=== PATIENT | female | born 1950 | race Caucasian/White ===

== ENCOUNTER 2017-04-04 14:41 | Inpatient (IN) | payer MEDICAID ==
--- NOTE | ~2017-04-04 | PR ---
[place], [place] PROGRESS NOTE NAME: [id number] UNIT #: [id number] ROOM: 317 DOCTOR: ANJELICA GALEANO BIRTHDATE: [birth year] DOS: 04/06/2017 CHIEF COMPLAINT: "This is ridiculous that I'm here." SUMMARY OF VISIT: The patient was assessed in the dining room where she engaged in conversation. She is still quite irritable. When I reminded her that we sent her here because that she had increased depression, suicidal thoughts and statements, she looked at me and said "you don't know that, you don't know me." When I reminded her that I see her every week at her nursing facility, she got really quiet. I asked her about her nephews overdose and if that affected her, she became very quiet and she said yeah actually it did. So, I think this is some of the contributing factor. She still thinks it is stupid that she is here and that we are stupid for having her here. MENTAL STATUS: She is alert and oriented to person, place, I do not think time. Mood, still depressed with anxious overtones, very irritable, sometimes difficult to redirect. She does jump from topic to topic. No overt signs of auditory or visual hallucinations. PLAN: Dr. Rosenberg did increase her Remeron to 22.5 mg at bedtime. He augmented it with Vraylar. I think I am starting to see some improvement. He also added Exelon, so I am not going to change any psych meds at this point in time. I do see that in his note, her TSH was up and that he ordered a T4 and T3 to be checked with the hospitalist to followup for management. We are still trying to decide if the patient had any type of thyroidectomy, I believe her daughter said that, but we are still trying to clarify this. So, I will follow up with and defer to the hospitalist as far as managing this elevated TSH. It does look like the T3 and T4 are in the normal range and see if they want to treat this or just monitor. We will continue to engage in individual and pena milieu therapy with a plan to discharge when stable. DANA GALEANO CNP CM:PNTRANS [id number] ANJELICA GALEANO 04/07/17 0013 interface
--- NOTE | ~2017-04-04 | PR ---
[place], [place] PROGRESS NOTE NAME: ALONZO HERRERA UNIT #: [id number] ROOM: 317 DOCTOR: JUAQUIN ALMODOVAR MD BIRTHDATE: [birth year] DOS: 04/08/2017 INTERVAL NOTE CHIEF COMPLAINT: "How am I supposed to cut my pancakes with the plastic knife." SUMMARY OF THE VISIT: The patient was interviewed as she sat eating breakfast. She complained to me that she was not able to cut her pancakes, I did offer her some assistance and she smiled readily. She then later reported to me she is very anxious to return back to [facility] and wants to leave the hospital as soon as she can. Mood does seem to be somewhat trending towards euthymia. She reports tolerating the medications well and denies any side effects. MENTAL STATUS: She is alert and oriented to person, place and very approximate to time. Mood does seem to be trending towards euthymia as mentioned earlier. There does not seem to be the presence of psychosis or juan. Short term memory has gaps. PLAN: I will increase her Vraylar from 1.5 mg to 3 mg a day to further stabilize her mood. I will also maximize out the dose of the Exelon patch from 9.5 to 13.3 mg daily in order to improve or maintain ADLs, behavior and cognition. Continue to engage in individual and pena milieu activity with the ultimate plan to return back to [facility] when stable. JUAQUIN ALMODOVAR MD CM:PNTRANS [id number] JUAQUIN ALMODOVAR MD 04/08/17 1203 interface
--- NOTE | ~2017-04-04 | DS ---
[place], [place] DISCHARGE SUMMARY NAME: ALONZO HERRERA [facility] #: [id number] UNIT #: [id number] ROOM: 317 DOCTOR: JUAQUIN ALMODOVAR MD BIRTHDATE: [birth year] DOS: 04/12/2017 DATE OF ADMISSION: 04/04/2017. DATE OF DISCHARGE: 04/12/2017. CHIEF COMPLAINT: "I have been so depressed; I can't stand it any longer." HISTORY OF PRESENT ILLNESS: This is a 66-year-old white female who is a resident of [facility] in [place], [place]. The patient apparently had been voicing increased depression and anxiety with suicidal thoughts and a plan. Per her report, she took an overdose of medication. She has been acting very bizarrely and felt like she needed to get out of the skilled nursing because there was a war going on and she was going to get sucked into war. This behavior is new onset and has occurred for the last several weeks prior to this admission. Prior to that time, she was very jovial and pleasant and had been residing at the skilled nursing for sometime never exhibiting any of these psychiatric manifestations. She is admitted now to the [facility] to rule out any organic factors to attempt to stabilize on medication with the ultimate plan to return back to [facility] when psychiatrically stable. PAST MEDICAL HISTORY: Remarkable for atrial fibrillation, dementia, depression, hyperlipidemia, hypertension, and vitamin D deficiency. SUMMARY OF HOSPITAL COURSE: The patient was admitted to the unit, where she was started on Remeron 15 mg at bedtime. Additionally, Vraylar 1.5 mg at bedtime was started to augment the effectiveness of the Remeron and also stopped some of the psychotic symptoms. She had already been on Namenda 10 mg twice daily while at the skilled nursing. This was augmented with Exelon patch 4.6 mg a day. The dose of Exelon was rapidly titrated upward to its maximum dose of 13.3 mg a day without any side effects noted. Ultimately, the Remeron dose was increased from the 15 mg dose to 22.5 to further improve her overall mood. With the combination of the Remeron and the Vraylar which was ultimately maxed out at its highest dose of 6 mg a day, the patient improved dramatically. She voiced improved sleep and appetite improved energy level. There was no longer talk with wars occurring at the facility and she voiced a willingness and a readiness to return back to [facility] as soon as possible. She convincingly denied medication side effects and reported overall feeling well. She was discharged then back to [facility] on April 12 and will have followup by myself. MENTAL STATUS AT DISCHARGE: The patient is alert and oriented to person, place, but not necessarily time. Mood does seem to be strongly trending towards euthymia. Affect is much more appropriate. There is no symptom suggestive of juan or hypomania. There are no overt auditory or visual hallucinations noted. Short-term memory has mild gaps and she does at times process slowly and perseverates. Intermediate memory and long-term are fully intact. FINAL DIAGNOSES: Major depression, recurrent with psychotic features. PLAN: All of her prescriptions have been printed and will be sent with her. [place], [place] DISCHARGE SUMMARY [id number] UN[facility] #: [id number] ROOM: 317 DOCTOR: JUAQUIN ALMODOVAR MD BIRTHDATE: [birth year] will follow her upon her readmission back to [facility]. JUAQUIN ALMODOVAR MD CM:DISCHARG 1 [id number] JUAQUIN ALMODOVAR MD 04/12/17 1044 interface
--- NOTE | ~2017-04-04 | PR ---
[place], [place] PROGRESS NOTE [id number] #: [id number] ROOM: 317 DOCTOR: ANJELICA GALEANO BIRTHDATE: [birth year] DOS: 04/07/2017 CHIEF COMPLAINT: "I don't want to be here." SUMMARY OF VISIT: The patient was assessed in her room. She engaged in minimal conversation, but is still quite irritable. Nursing notes that she is paranoid about everything. This patient is just not herself. When she was at the jail prior to the of her nephew from an overdose, she was pleasant, engaging, sweet. Since returning from the actual she has not been herself. I had questioned staff as it was possible someone gave her something to calm her down, but they said that they ran tests on her and nothing seemed out of the ordinary other than the fact that she is quite paranoid, delusional, suicidal, severely depressed, wanting to . MENTAL STATUS: She is alert and oriented to person and place. She knows that she is not at her normal location, not time. Mood is quite labile, irritable, very difficult to redirect when she gets fixated. She still continues to jump from topic to topic and does not make sense at times. There are no signs of auditory or visual hallucinations, but she can be quite delusional and paranoid. PLAN: I am going to increase her Exelon patch to 9.5 mg every day. Her Remeron to 22.5. I am going to get a complete metabolic panel on her and see if there is something else going on. Her TSH was a little bit elevated, but her T3 and T4 were fine. We have a current CBC on her, no bump in the white blood cells anywhere. Her urine screen negative. Her dig level is fine. We will continue to try to gain a little bit more information on her. If she is not better by tomorrow I am going to have to bump up the Vraylar. We will plan discharging when stable. DANA GALEANO CNP CM:PNTRANS [id number] ANJELICA GALEANO 04/08/17 0748 interface
--- NOTE | ~2017-04-04 | PR ---
[place], [place] PROGRESS NOTE [id number] UN[facility] #: [id number] ROOM: 317 DOCTOR: ANJELICA GALEANO BIRTHDATE: [birth year] DOS: 04/11/2017 CHIEF COMPLAINT: "Good morning." SUMMARY OF VISIT: The patient was assessed in her room where she was still lying in bed before breakfast. She engaged readily in conversation. I inadvertently called her "Mrs. Herrera" again and she said "that's my mother" and I am like "I am sorry Alonzo, I know you prefer Alonzo, I was just trying to be crazy" and this is the first time she smiled and she said "that's okay." I told her that her hair look better today than it did yesterday and she agreed and smiled. So, I think we are making headway. She was saying that she was miserable and I asked her why and she is like "I just don't want to be here, I feel like I am in a horrible dream." I am like "would you like to eventually get back to [facility]" and she said "yes," and I am like "well, let me see if I can make that happen in the next couple of days" and she smiled. MENTAL STATUS: Alert and oriented to person, place, approximate time. Mood, she still having some lability, but it is trending towards euthymic. Affect is much more appropriate. There are no overt signs of auditory or visual hallucinations, delusions or paranoia. PLAN: I increased her Vraylar yesterday, I am going to keep it where it is today. We will continue to engage in individual and pena milieu therapy. We will continue to plan on discharging her as soon as she is psychologically stable. DANA GALEANO CNP CM:PNTRANS 0815 [id number] ANJELICA GALEANO 04/11/17 1250 interface
--- NOTE | ~2017-04-04 | PR ---
[place], [place] PROGRESS NOTE NAME: ALONZO HERRREA UNIT #: [id number] ROOM: 317 DOCTOR: JUAQUIN ALMODOVAR MD BIRTHDATE: [birth year] DOS: 04/09/2017 CHIEF COMPLAINT: "I want to leave here. I want to go home. I do not belong here." SUMMARY OF THE VISIT: The patient was interviewed in the dining area. She was sitting in a wheelchair, watching television. As I approached, she crossed her arms across her chest and very angrily told me that she wanted to leave here. She engaged briefly in conversation with me, lifting reasons why she wanted to leave and when I told her that this would not happen, she very angrily looked away and would no longer respond to me. MENTAL STATUS: The patient is alert and oriented to person, place, uncertain about time. The patient remains very volatile and labile. Of note, the patient did grab the phone and dialed 911 to summon the police here. She remains impulsive and very hard to redirect. Due to her lack of cooperation, I am not certain if we are dealing with some paranoia and delusions. Memory seems fairly intact. PLAN: I will continue to push the Vraylar to its maximum dose bring it from 3 mg at bedtime to 4.5. I am ultimately targeting 6 mg a day to achieve maximum benefit. We will continue to attempt to engage her in individual and pena milieu activity. The ultimate plan is to return her to [facility] when psychiatrically stable. JUAQUIN ALMODOVAR MD CM:PNTRANS 0840 0103 JUAQUIN ALMODOVAR MD 04/10/17 0104 interface
--- NOTE | ~2017-04-04 | WRIGHTHP ---
[place], [place] PATIENT HISTORY AND PHYSICAL EXAM NAME[id number] UNIT #: [id number] ROOM: 317 DOCTOR: JUAQUIN ALMODOVAR MD BIRTHDATE: [birth year] DOS: 04/05/2017 CHIEF COMPLAINT: "I have been depressed. I can't stand it anymore." HISTORY OF PRESENT ILLNESS: This is a 66-year-old white female who is a resident of [facility]. The patient apparently has been voicing increased depression and anxiety with suicidal thoughts and a plan. Per her report, she took an overdose of medication. She has been acting very bizarre, however, has reported that she needs to get out of the intermediate because there was a war going on. This behavior is new onset within the last several weeks prior to this admission. Prior to that, she had been very jovial and pleasant and had been residing at the intermediate for sometime and was not exhibiting any of these psychiatric manifestations. She is admitted now to rule out organic factors to attempt to stabilize on medication, returning back to [facility] when psychiatrically stable. PAST MEDICAL HISTORY: Remarkable for AFib, dementia, depression, hyperlipidemia, hypertension, vitamin D deficiency. MENTAL STATUS: She is alert and oriented to person, place, but not necessarily time. Mood does seem to be depressed with anxious overtones. She does tend to jump from topic to topic and it is very hard for her to answer questions. Totally, she lacks spontaneity. There is no hypomania or juan. There does seem to be some delusions present. Short term memory is exceedingly poor. DIAGNOSIS: Major depression, recurrent with psychotic features. PLAN: I have already adjusted her Remeron dose from 15 mg at bedtime to 22.5 mg at bedtime. I will augment this now with Vraylar 1.5 mg at bedtime, hoping that this will increase the effectiveness of the antidepressant, will also decreasing some of the psychotic symptomatology. For the dementia, she is on Namenda 10 mg twice daily. I will add Exelon patch 4.6 mg a day. Of note, the patient's TSH upon admission and routine screening examinations was mildly elevated at 6.040. I will check a free T4 and T3U. Defer to the hospitalist for management. We will engage her in individual and pena milieu activity with the ultimate plan to return back to [facility] once psychiatrically stable. [place], [place] PATIENT HISTORY AND PHYSICAL EXAM NAME: ALONZO HERRERA UNIT #: [id number] ROOM: [facility] DOCTOR: JUAQUIN ALMODOVAR MD BIRTHDATE: [birth year] JUAQUIN ALMODOVAR MD CM:HISPHYS:PATIENT HISTORY AND PHYSICAL EXAMINATION [id number] JUAQUIN ALMODOVAR MD 04/05/17 0810 interface
--- NOTE | ~2017-04-04 | PR ---
[place], [place] PROGRESS NOTE [id number] UNIT #: [id number] ROOM: 317 DOCTOR: ANJELICA GALEANO BIRTHDATE: [birth year] DOS: 04/10/2017 CHIEF COMPLAINT: "Look at my hair, I look like a pinhead." SUMMARY OF VISIT: The patient was assessed in the dining room where she was eating breakfast. I asked how she was. She was quite irritable. I asked her what was wrong. She is look at my hair, they washed it. It is all flat now, I look like a pinhead. I told her I kind of agree and asked her if she used jell or mousse in her hair and she says "I don't know" and I said I will have someone fluff up your hair after you are done with breakfast, if that will make you feel better and she stated that it would and then she was agreeable to answering my questions. She states that she is sleeping fine. She has a decent appetite. MENTAL STATUS: She is alert and oriented to person, place, I do not know about time. Her mood is still quite labile, right now she is upset about her hair. Apparently, she told the nurse, she looked like a skank. I do not know if she has got paranoia or delusions going on. Overall, her memory seems intact. At first you think she is having delusions or she is not quite there but then she will come back at you and what she is saying is making sense. PLAN: I am going to increase her Vraylar for now and just see if this helps at all. Again, from everything I obtained from the nursing facility, she has had an acute change since her nephew's . Plan again, I increased her Vraylar to [address] Rosenberg's note from yesterday, his ultimate targeting dose was 6 mg a day to achieve maximum benefit. We will continue to try to engage in individual and pena milieu therapy. Plan is to get her [facility] to [facility] as soon as she is psychologically stable. This is just not this individual's personality. She is normally a very pleasant, engaging individual and she is just quite irritable with significant mood lability. DANA GALEANO CNP CM:BRIDGETTE 0834 20 ANJELICA GALEANO 04/10/17 232 interface
[2017-04-04] MEDS ORDERED: DIGOX0.25 MG PO (15:17)
[2017-04-04] MEDS ORDERED: CELEXA10 MG PO (15:17)
[2017-04-04] MEDS ORDERED: FUROSEMIDE20 M1 PO (15:18)
[2017-04-04] MEDS ORDERED: LISINOPRIL5 MG PO (15:19)
[2017-04-04] MEDS ORDERED: REMERON15 M2 PO (15:20)
[2017-04-04] MEDS ORDERED: NAMENDA-28 PO (15:20)
[2017-04-04] MEDS ORDERED: DITROPAN XL10 MG PO (15:22)
[2017-04-04] MEDS ORDERED: PROTONIX TR40 M1 PO (15:22)
[2017-04-04] MEDS ORDERED: SIMVASTATIN10 MG PO (15:23)
[2017-04-04] MEDS ORDERED: VITAMIN D-32000 UNI1 PO (15:25)
[2017-04-04] MEDS ORDERED: CARVEDILOL3.125 MG PO (15:27)
[2017-04-04] MEDS ORDERED: COREG6.25 MG PO (15:27)
[2017-04-04] MEDS ORDERED: KLONOPIN1 M1 PO (15:28)
[2017-04-04] MEDS ORDERED: RIVASTIGMINE TAR6 M1 PO (15:29)
[2017-04-04] MEDS ORDERED: KLOR-CON M2020 ME1 PO (15:31)
[2017-04-04] MEDS ORDERED: VISTARIL50 MG PO (15:33)
[2017-04-04] MEDS ORDERED: IMODIUM A-D2 M3 PO (15:33)
[2017-04-04 16:39] VITALS: BP 107/59
[2017-04-04 17:40] LABS: BASO # 0.1 10*3/uL (0.0-0.1); BASO % 0.7 % (0.0-1.0); EOS # 0.4 10*3/uL (0.0-0.4); EOS % 3.4 % (1.0-4.0); HEMATOCRIT 45.3 % (37.0-47.0); HEMOGLOBIN 13.9 g/dl (12.0-16.0); LYMPH # 3.7 10*3/uL (1.3-4.4); LYMPH % 34.8 % (27.0-41.0); MEAN CELL VOLUME 86.8 fl (81.0-99.0); MEAN CORPUSCULAR HGB 26.6 pg (27.0-31.0); MEAN CORPUSCULAR HGB CONC 30.7 g/dl (33.0-37.0); MEAN PLATELET VOLUME 9.7 fl (9.6-12.3); MONO # 0.7 10*3/uL (0.1-1.0); MONO % 6.9 % (3.0-9.0); NEUT # 5.8 10*3/uL (2.3-7.9); NEUT % 53.9 % (47.0-73.0); PLATELET COUNT AUTOMATED 276 10*3/uL (130-400); RED BLOOD COUNT 5.22 10*6/uL (4.10-5.10); RED CELL DISTRI WIDTH 14.4 % (0-14.5); WHITE BLOOD COUNT 10.7 10*3/uL (4.8-10.8)
[2017-04-04 17:59] LABS: HEMOGLOBIN A1c 6.7 % (4.8-5.6)
[2017-04-04 18:26] LABS: ALBUMIN 3.5 gm/dl (3.1-4.5); ALKALINE PHOSPHATASE 114 U/L (45-117); BILIRUBIN, TOTAL 0.4 mg/dl (0.2-1.0); BUN 10 mg/dl (7-24); CARBON DIOXIDE 31 mmol/L (21-32); CHLORIDE 101 mmol/L (98-107); EST GLOM FILT AFRICAN AMERICAN > 60 ml/min; GLUCOSE 92 mg/dL (65-99); POTASSIUM 4.3 mmol/L (3.5-5.1); SGOT/AST 14 IU/L (3-35); SGPT/ALT 16 U/L (12-78); SODIUM 138 mmol/L (136-145); TOTAL PROTEIN 7.6 gm/dL (6.4-8.2)
[2017-04-04 20:24] VITALS: BP 114/65
[2017-04-05 06:57] LABS: BILIRUBIN NEGATIVE (NEGATIVE); BLOOD NEGATIVE (NEGATIVE); CLARITY CLEAR (CLEAR); COLOR YELLOW (YELLOW); GLUCOSE NEGATIVE (NEGATIVE); KETONE NEGATIVE (NEGATIVE); LEUKO ESTERASE NEGATIVE (NEGATIVE); NITRITE NEGATIVE (NEGATIVE); PROTEIN NEGATIVE (NEGATIVE); SPECIFIC GRAVITY <= 1.005 (1.005-1.030); UROBILINOGEN 0.2 E.U./dl (0.2-1.0)
[2017-04-05 07:31] LABS: FREE T4 1.19 ng/dl (0.76-1.46)
[2017-04-05 07:42] LABS: DIGOXIN 1.34 ng/ml (0.8-2.0)
[2017-04-05 08:07] VITALS: BP 110/56
[2017-04-05 08:11] LABS: BACTERIA TRACE
[2017-04-05 08:12] LABS: URINE REFLEX COMMENT NO (NO)
[2017-04-05 19:47] VITALS: BP 121/54
[2017-04-06 08:25] VITALS: BP 112/58
[2017-04-06 19:57] VITALS: BP 119/61
[2017-04-07 07:48] VITALS: BP 115/62
[2017-04-07 21:19] VITALS: BP 138/67
[2017-04-08 06:49] LABS: ALBUMIN 2.9 gm/dl (3.1-4.5); BUN 16 mg/dl (7-24); CARBON DIOXIDE 29 mmol/L (21-32); CHLORIDE 106 mmol/L (98-107); GLUCOSE 101 mg/dL (65-99); POTASSIUM 4.3 mmol/L (3.5-5.1); SODIUM 143 mmol/L (136-145)
[2017-04-08 06:52] LABS: ALKALINE PHOSPHATASE 87 U/L (45-117); BILIRUBIN, TOTAL 0.3 mg/dl (0.2-1.0); EST GLOM FILT AFRICAN AMERICAN > 60 ml/min; SGOT/AST 13 IU/L (3-35); SGPT/ALT 14 U/L (12-78); TOTAL PROTEIN 6.1 gm/dL (6.4-8.2)
[2017-04-08 07:46] VITALS: BP 105/67
[2017-04-08 20:49] VITALS: BP 92/47
[2017-04-09 08:24] VITALS: BP 106/54
[2017-04-09 20:00] VITALS: BP 117/67
[2017-04-10 00:02] VITALS: BP 118/68
[2017-04-10 07:28] VITALS: BP 113/77
[2017-04-10 19:39] VITALS: BP 112/63
[2017-04-11 06:30] LABS: BASO # 0.1 10*3/uL (0.0-0.1); BASO % 0.3 % (0.0-1.0); EOS # 0.6 10*3/uL (0.0-0.4); EOS % 3.7 % (1.0-4.0); HEMATOCRIT 41.5 % (37.0-47.0); HEMOGLOBIN 13.2 g/dl (12.0-16.0); IG # 0.1 10*3/uL (0.0-0.1); LYMPH # 3.4 10*3/uL (1.3-4.4); LYMPH % 23.2 % (27.0-41.0); MEAN CORPUSCULAR HGB CONC 31.8 g/dl (33.0-37.0); MEAN PLATELET VOLUME 9.8 fl (9.6-12.3); MONO # 0.9 10*3/uL (0.1-1.0); MONO % 6.3 % (3.0-9.0); NEUT # 9.7 10*3/uL (2.3-7.9); NEUT % 66.1 % (47.0-73.0); PLATELET COUNT AUTOMATED 263 10*3/uL (130-400); RED BLOOD COUNT 4.88 10*6/uL (4.10-5.10); RED CELL DISTRI WIDTH 14.2 % (0-14.5); WHITE BLOOD COUNT 14.7 10*3/uL (4.8-10.8)
[2017-04-11 06:36] LABS: ALBUMIN 3.2 gm/dl (3.1-4.5); ALKALINE PHOSPHATASE 97 U/L (45-117); BILIRUBIN, TOTAL 0.2 mg/dl (0.2-1.0); BUN 12 mg/dl (7-24); CARBON DIOXIDE 24 mmol/L (21-32); CHLORIDE 108 mmol/L (98-107); EST GLOM FILT AFRICAN AMERICAN > 60 ml/min; GLUCOSE 123 mg/dL (65-99); POTASSIUM 4.3 mmol/L (3.5-5.1); SGOT/AST 15 IU/L (3-35); SGPT/ALT 16 U/L (12-78); SODIUM 139 mmol/L (136-145); TOTAL PROTEIN 6.6 gm/dL (6.4-8.2)
[2017-04-11 10:53] VITALS: BP 102/52
[2017-04-11 19:58] VITALS: BP 114/64
[2017-04-12 06:50] LABS: BASO % 0.3 % (0.0-1.0); EOS # 0.4 10*3/uL (0.0-0.4); EOS % 3.4 % (1.0-4.0); HEMATOCRIT 42.9 % (37.0-47.0); HEMOGLOBIN 13.7 g/dl (12.0-16.0); IG # 0.1 10*3/uL (0.0-0.1); LYMPH # 3.3 10*3/uL (1.3-4.4); LYMPH % 27.9 % (27.0-41.0); MEAN CELL VOLUME 84.4 fl (81.0-99.0); MEAN CORPUSCULAR HGB CONC 31.9 g/dl (33.0-37.0); MEAN PLATELET VOLUME 9.8 fl (9.6-12.3); MONO # 0.8 10*3/uL (0.1-1.0); MONO % 6.8 % (3.0-9.0); NEUT # 7.3 10*3/uL (2.3-7.9); NEUT % 61.2 % (47.0-73.0); PLATELET COUNT AUTOMATED 270 10*3/uL (130-400); RED BLOOD COUNT 5.08 10*6/uL (4.10-5.10); RED CELL DISTRI WIDTH 14.4 % (0-14.5); WHITE BLOOD COUNT 11.9 10*3/uL (4.8-10.8)
[2017-04-12 07:52] VITALS: BP 116/54; BP 90/68
[2017-04-12] MEDS ORDERED: VRAYLAR6 MG PO (07:57)
[2017-04-12] MEDS ORDERED: EXELON13.3 MG/21 T (07:57)
[2017-04-12] MEDS ORDERED: CLONAZEPAM0.5 M2 PO (07:57)
[2017-04-12] MEDS ORDERED: D-1000 185 MG-11 TAB PO (07:57)
[2017-04-12] MEDS ORDERED: MEMANTINE HCL10 MG PO (07:57)
[2017-04-12] MEDS ORDERED: MIRTAZAPINE15 M2 PO (07:57)
[2017-04-12 12:17] VITALS: BP 102/62
== END 2017-04-12 13:13 | DRG 885 ==
LOC: 3N 14:41
PROVIDERS: Family Medicine; Internal Medicine; Nurse Practitioner Adult Health; Psychiatry & Neurology Psychiatry
DX: F33.3 Major depressive disorder, recurrent, severe with psychotic symptoms (principal); F03.91 Unspecified dementia, unspecified severity, with behavioral disturbance; I48.91 Unspecified atrial fibrillation; E78.5 Hyperlipidemia, unspecified; I10 Essential (primary) hypertension; Z90.49 Acquired absence of other specified parts of digestive tract; Z80.8 Family history of malignant neoplasm of other organs or systems; Z82.49 Family history of ischemic heart disease and other diseases of the circulatory system; Z88.0 Allergy status to penicillin; Z91.048 Other nonmedicinal substance allergy status; Z87.891 Personal history of nicotine dependence; Z95.0 Presence of cardiac pacemaker; E55.9 Vitamin D deficiency, unspecified; F41.9 Anxiety disorder, unspecified; R32 Unspecified urinary incontinence